=== PATIENT | male | born 1965 | race Caucasian/White ===

== ENCOUNTER → 2016-08-03 | Outpatient (CLI) | payer MEDICARE, MEDICAID ==
[~2016-08-03] MED LIST: AMIT100T PO; AMLO10TA2 PO; DICL100G8 TP; ENAL20TA PO; GABA600T2 PO; MELO-184 PO; OMEP-110 PO; OXYC-74 PO; TIZA4CAP PO
== END | disposition home or self-care (01) ==
LOC: RAD 10:49
PROVIDERS: ATTEND Nurse Practitioner
DX: M16.0 Bilateral primary osteoarthritis of hip (principal); M25.562 Pain in left knee

== ENCOUNTER 2018-07-01 17:35 | Emergency (ER) | payer MEDICAID, MEDICARE ==
[~2018-07-01] VITALS: Ht 167.6 cm; Wt 75.0 kg
[~2018-07-01 17:35] MED LIST changes: -AMLO10TA2 PO; +AMLO10TA8 PO; +DICL100G19 TP; -DICL100G8 TP; -GABA600T2 PO; +GABA600T7 PO; -MELO-184 PO; +MELO15TA24 PO; +OXYC-296 PO; -OXYC-74 PO
[2018-07-01 17:39] VITALS: BP 150/97
--- NOTE | 2018-07-01 18:50 | NUR ---
Patient/Caregiver given discharge instructions and they have confirmed that they understand the instructions. Patient ambulatory with steady gait.
== END 2018-07-01 18:50 | disposition home or self-care (01) ==
LOC: ED 18:15
DX: R05 Cough (principal); J00 Acute nasopharyngitis [common cold]; I10 Essential (primary) hypertension
CPT/HCPCS: 71046; 93005; 99283

== ENCOUNTER 2020-06-05 07:14 | Day surgery (SDC) | payer MEDICARE ==
[2020-06-04 10:49] LABS: ALBUMIN 3.9 g/dL (3.4-5.0); ANION GAP 5 mmol/L (5-15); CALCIUM 8.4 mg/dL (8.5-10.1); CHLORIDE 110 mmol/L (98-107)
[2020-06-04 10:53] LABS: ALANINE AMINOTRANSFERASE 21 U/L (12-78); ALKALINE PHOSPHATASE 116 U/L (45-117); BILIRUBIN,TOTAL 0.5 mg/dL (0.2-1.0); CREATININE 1.26 mg/dL (0.7-1.3); TOTAL PROTEIN 7.2 g/dL (6.4-8.2)
[~2020-06-05] VITALS: Ht 167.6 cm; Wt 70.0 kg
[~2020-06-05 07:14] MED LIST changes: +AMLO-211 PO; -AMLO10TA8 PO; -ENAL20TA PO; +ENAL20TA9 PO; +FENTANYL PF 250 MCG/5ML ONE; +METH-640 PO; +MIDAZOLAM 1 MG/ML, 2ML ONE; +NAPR-685 PO; +OXYC-380 PO
[2020-06-05] MEDS ORDERED: CHLORHEXIDINE 15 ML UDC MM STA (07:21)
[2020-06-05 07:29] VITALS: BP 151/117
[2020-06-05] MEDS ORDERED: CHLORHEXIDINE 15 ML UDC ONE (07:29)
[2020-06-05] MEDS ORDERED: HALOPERIDOL 5 MG/ML IV PRN (07:30)
[2020-06-05] MEDS ORDERED: DIPHENHYDRAMINE 50 MG/ML, 1ML IVPush PRN (07:30)
[2020-06-05] MEDS ORDERED: hydrALAzine 20 MG/ML, 1ML IV PRN (07:30)
[2020-06-05] MEDS ORDERED: LACTATED RINGERS 1,000 ML IV SCH (07:30)
[2020-06-05] MEDS ORDERED: ONDANSETRON 2MG/ML, 2ML IVPush PRN (07:30)
[2020-06-05] MEDS ORDERED: EPHEDRINE 50 MG/ML, 1ML IVPush PRN (07:30)
[2020-06-05] MEDS ORDERED: PROMETHAZINE 25 MG/ML, 1ML IVPush PRN (07:30)
[2020-06-05] MEDS ORDERED: DIAZEPAM 5 MG/ML, 2ML IVPush PRN (07:30)
[2020-06-05] MEDS ORDERED: LABETALOL 5MG/ML, 20ML IV PRN (07:30)
[2020-06-05] MEDS ORDERED: ACETAMINOPHEN 325 MG TABLET PO PRN (07:30)
[2020-06-05] MEDS ORDERED: FENTANYL PF 100 MCG/2ML IV PRN (07:30)
[2020-06-05] MEDS ORDERED: METOPROLOL 1 MG/ML, 5ML IV PRN (07:30)
[2020-06-05] MEDS ORDERED: HYDROmorphone 1 MG/ML, 1ML INJ IVPush PRN (07:30)
[2020-06-05] MEDS ORDERED: OXYcodone 5 MG/5 ML ORAL.SOL UDC PO PRN (07:30)
[2020-06-05] MEDS ORDERED: METOCLOPRAMIDE 5 MG/ML, 2ML IVPush PRN (07:30)
[2020-06-05] MEDS ORDERED: BUPIVACAINE/PF 0.25% ONE (08:05)
[2020-06-05] MEDS ORDERED: ONDANSETRON 2MG/ML, 2ML ONE (08:10)
[2020-06-05] MEDS ORDERED: KETOROLAC 30 MG/1 ML ONE (08:10)
[2020-06-05] MEDS ORDERED: CEFAZOLIN 1,000 MG ONE (08:10)
[2020-06-05] MEDS ORDERED: LIDOCAINE-MPF 1%, 2ML ONE (08:10)
[2020-06-05] MEDS ORDERED: DEXAMETHASONE 4 MG/ML, 1ML ONE (08:10)
[2020-06-05] MEDS ORDERED: PROPOFOL 10 MG/ML, 20ML ONE (08:10)
[2020-06-05] MEDS ORDERED: BUPIVACAINE/PF 0.5% INFIL ONE (08:28)
[2020-06-05] MEDS ORDERED: BUPIVACAINE/PF 0.5% ONE (10:31)
== END 2020-06-05 12:10 | disposition home or self-care (01) ==
LOC: OUT 07:14
PROVIDERS: ATTEND Orthopaedic Surgery
DX: S62.317A Displaced fracture of base of fifth metacarpal bone, left hand, initial encounter for closed fracture (principal); S62.142A Displaced fracture of body of hamate [unciform] bone, left wrist, initial encounter for closed fracture; I10 Essential (primary) hypertension; G47.33 Obstructive sleep apnea (adult) (pediatric); F32.9 Major depressive disorder, single episode, unspecified; M19.90 Unspecified osteoarthritis, unspecified site; Z20.822 Contact with and (suspected) exposure to COVID-19; Z79.1 Long term (current) use of non-steroidal anti-inflammatories (NSAID); Z79.891 Long term (current) use of opiate analgesic; Z79.899 Other long term (current) drug therapy; Z88.8 Allergy status to other drugs, medicaments and biological substances; Z98.890 Other specified postprocedural states; Z82.61 Family history of arthritis; W22.09XA Striking against other stationary object, initial encounter; Y93.89 Activity, other specified; Y92.89 Other specified places as the place of occurrence of the external cause; Y99.8 Other external cause status
CPT/HCPCS: 26676; 36415; 73120; 80053; 87635; C1713; J0690; J1100; J1885; J2250; J2405; J2704; J3010; J7120; 76000

== ENCOUNTER → 2020-10-16 | Outpatient (CLI) | payer MEDICARE ==
[~2020-10-16] MED LIST changes: -FENTANYL PF 250 MCG/5ML ONE; -MIDAZOLAM 1 MG/ML, 2ML ONE
[2020-10-16 12:51] LABS: BASOPHILS % (AUTO) 1 % (0-1); EOSINOPHILS % (AUTO) 2 % (1-7); LYMPHOCYTES % (AUTO) 22 % (22-44); MEAN CORPUSCULAR HGB CONC 35.2 g/dL (33.2-36.2); MEAN PLATELET VOLUME 7.8 fL (7.4-10.4); MONOCYTES % (AUTO) 5 % (2-9); NEUTROPHILS % (AUTO) 70 % (42-75); PLATELET COUNT 274 x10^3/uL (130-400); RED BLOOD COUNT 5.32 x10^6/uL (4.38-5.82); RED CELL DISTRIBUTION WIDTH 13.6 % (9.4-14.8)
[2020-10-16 12:54] LABS: ALANINE AMINOTRANSFERASE 22 U/L (12-78); ALBUMIN 3.8 g/dL (3.4-5.0); ANION GAP 5 mmol/L (5-15); CALCIUM 8.8 mg/dL (8.5-10.1); CHLORIDE 111 mmol/L (98-107); CHOLESTEROL, TOTAL 200 mg/dL (140-239)
[2020-10-16 13:03] LABS: ALKALINE PHOSPHATASE 109 U/L (45-117); BILIRUBIN,TOTAL 0.5 mg/dL (0.2-1.0); CHOL/HDL RATIO 4.5; CREATININE 1.32 mg/dL (0.7-1.3); FREE T4 (FREE THYROXINE) 0.98 ng/dL (0.76-1.46); HDL CHOL % 22 % (26-37); HDL CHOLESTEROL (DIRECT) 44 mg/dL (40-60); LDL CHOLESTEROL,CALCULATED 129 mg/dL (54-169); LDL/HDL RATIO 2.9 (0.5-3.0); TOTAL PROTEIN 7.3 g/dL (6.4-8.2); TRIGLYCERIDES 136 mg/dL (50-200); VLDL CHOLESTEROL 27 mg/dL (0-25)
== END | disposition home or self-care (01) ==
LOC: LAB 12:23
PROVIDERS: ATTEND Registered Nurse
DX: F31.81 Bipolar II disorder (principal)
CPT/HCPCS: 36415; 80053; 80061; 83036; 84439; 84443; 85025

== ENCOUNTER 2020-12-27 11:29 | Outpatient (CLI) | payer MEDICARE ==
[~2020-12-27 11:29] MED LIST changes: -OXYC-380 PO; +OXYC-501 PO
[2020-12-27 13:11] LABS: CHOL/HDL RATIO 4.7; FOLATE LEVEL 7.1 ng/mL (3.1-17.5); LDL/HDL RATIO 2.9 (0.5-3.0)
== END 2020-12-27 23:59 | disposition home or self-care (01) ==
LOC: LAB 11:29
PROVIDERS: ATTEND Nurse Practitioner Psychiatric/Mental Health
DX: R53.83 Other fatigue (principal); E78.5 Hyperlipidemia, unspecified; E55.9 Vitamin D deficiency, unspecified
CPT/HCPCS: 36415; 80061; 82306; 82607; 82746; 84402; 84403